=== PATIENT | female | born 1970 | race Caucasian/White ===

== ENCOUNTER 2020-09-02 07:49 | Outpatient (CLI) | payer BC, SELFPAY ==
--- NOTE | ~2020-09-02 | MM_ITS ---
EXAMINATION: MM screening chip BI w fátima HISTORY: Screening mammogram TECHNIQUE: Craniocaudal and mediolateral oblique 3-D tomosynthesis images were obtained and synthetic 2-D images were generated. CAD analysis was submitted and interpreted. COMPARISON: 06/13/2019, 02/28/2018, 11/17/2016 bilateral digital screening mammogram examinations BREAST PARENCHYMAL COMPOSITION: There are scattered areas of fibroglandular density. FINDINGS: There are bilateral mammographic asymmetries. Bilateral diagnostic mammography is recommend ed, with ultrasound if required. IMPRESSION: 1. Bilateral mammographic asymmetries 2. Bilateral diagnostic mammography is recommended, with ultrasound if required BI-RADS Category 0: Incomplete: Needs additional imaging evaluation. Reviewed, dictated and finalized at location A. 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
== END 2020-09-02 07:50 | disposition home or self-care (01) ==
LOC: ANHIMG 07:56
PROVIDERS: PCP Student in an Organized Health Care Education/Training Program; Visit Provider Student in an Organized Health Care Education/Training Program
DX: Z12.31 Encounter for screening mammogram for malignant neoplasm of breast (principal); R92.8 Other abnormal and inconclusive findings on diagnostic imaging of breast
CPT/HCPCS: 77063; 77067

== ENCOUNTER 2020-10-05 11:11 | Outpatient (CLI) | payer BC, SELFPAY ==
--- NOTE | ~2020-10-05 | MMUS_ITS ---
EXAMINATION: MM diagnostic mammo BI, US breast RT limited HISTORY: Bilateral breast asymmetries on screening mammogram TECHNIQUE: Additional 3-D tomosynthesis images of the breasts were performed and synthetic 2-D images were generated. CAD analysis was submitted and interpreted. High resolution limited right breast ult rasound was performed. COMPARISON: 09/02/2020, 06/13/2019, 02/28/2018 FINDINGS: MAMMOGRAPHIC FINDINGS: Left breast: No persistent asymmetry is identified with spot compression of the left breast. Right breast: There is a 5 mm obscured, oval, equal density mass in the middle third of the outer geremias ast at the 9:00 location 6 cm from the nipple. ULTRASOUND: There is a 4 mm oval, circumscribed, parallel, hypoechoic mass at the 8:00 location 2 cm from the nip ple. IMPRESSION: 1. Probably benign right breast mass. 2. Recommend 6 month follow-up right diagnostic mammogram and ultrasound. BI-RADS category 3, probably benign findings. 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 Probably benign right breast mass. 2. Recommend 6 month follow-up right diagnostic mammogram and ultrasound. BI-RADS category 3, probably benign findings.
== END 2020-10-05 11:12 | disposition home or self-care (01) ==
LOC: ANHIMG 11:12
PROVIDERS: PCP Student in an Organized Health Care Education/Training Program; Visit Provider Student in an Organized Health Care Education/Training Program
DX: R92.8 Other abnormal and inconclusive findings on diagnostic imaging of breast (principal)
CPT/HCPCS: 76642; 77066

== ENCOUNTER 2021-03-23 12:52 | Outpatient (CLI) | payer BC, SELFPAY ==
--- NOTE | ~2021-03-23 | MMUS_ITS ---
EXAMINATION: MM diagnostic chip RT w fátima, US breast RT limited HISTORY: Follow-up right breast mass TECHNIQUE: Additional 3-D tomosynthesis images of the right breast were performed and synthetic 2-D i mages were generated. CAD analysis was submitted and interpreted. High resolution Limited right breas t ultrasound was performed. COMPARISON: Comparison to multiple prior studies sequentially, with oldest reviewed study dated 10/26. BREAST PARENCHYMAL COMPOSITION: Breast composed of scattered areas of fibroglandular density. FINDINGS: MAMMOGRAPHIC FINDINGS: There is a small mass in the mid outer quadrant of the right breast, middle third. No suspicious calc ifications or architectural distortion. ULTRASOUND: Limited right breast ultrasound: At 8:00, 2 cm from the nipple, there is a 3 mm intramammary lymph no de corresponding to the mass identified on mammography. No suspicious sonographic masses to suggest m alignancy. IMPRESSION: 1. No evidence for malignancy in the right breast. 2. Routine yearly screening mammogram and regular clinical breast examination are recommended. BI-RADS Category 2: Benign finding(s). Reviewed, dictated and finalized at location A. IMPRESSION: 1. No evidence for malignancy in the right breast. 2. Routine yearly screening mammogram and regular clinical breast examination a re recommended. BI-RADS Category 2: Benign finding(s).
== END 2021-03-23 12:53 | disposition home or self-care (01) ==
LOC: ANHIMG 12:53
PROVIDERS: PCP Student in an Organized Health Care Education/Training Program; Visit Provider Student in an Organized Health Care Education/Training Program
DX: N63.13 Unspecified lump in the right breast, lower outer quadrant (principal)
CPT/HCPCS: 76642; 77061; 77065; G0279

== ENCOUNTER 2021-09-05 00:04 | Day surgery (SDC) | payer BC, SELFPAY ==
[2021-08-24 12:12] VITALS: BMI 44.5
[2021-09-05 06:15] VITALS: BP 132/68; PULSE 112; RESP 18; TEMP 35.9; O2SAT 98; BMI 44.6
[2021-09-05] MEDS: LACTATED RINGERS 1,000 ML 150 ML IV CONT (06:36)
--- NOTE | 2021-09-05 07:04 | WPDANESEPPF ---
Anes - Initial Pre Proc Eval Procedure: Operation Date: 09/05/21 07:30 Proposed Procedures p Screening Colonoscopy - Edgar Tapia MD Date/Time: 09/05/21 07:04 Surgeon: Edgar Tapia MD Pre Op Diagnosis: neoplasm screening Patient Data Age: 51 Gender: F Height: 1.6 m Weight: 114.2 kg Last Vital Signs Temp 35.9 C L 09/05/21 06:15 Pulse 112 H 09/05/21 06:15 Resp 18 09/05/21 06:15 BP 132/68 09/05/21 06:15 Pulse Ox 98 09/05/21 06:15 Allergies Allergy/AdvReac Type Severity Reaction Status Date / Time No Known Allergies Allergy Mild Verified 09/05/21 06:24 Home Medications Medication Instructions Recorded Confirmed Type atorvastatin 10 mg tablet 10 mg PO DAILY 03/02/20 09/05/21 History hydrochlorothiazide 25 mg tablet 25 mg PO DAILY 03/02/20 09/05/21 History lisinopril 40 mg tablet 40 mg PO DAILY 03/02/20 09/05/21 History norethindrone 1 mg-ethinyl 1 tablet PO DAILY #84 tablet 03/10/21 09/05/21 Rx estradiol 20 mcg (24)-iron 75 mg (4) tablet cholecalciferol (vitamin D3) 50 mcg PO DAILY 08/24/21 09/05/21 History [Vitamin D3] [id number] 1 cap PO DAILY 08/24/21 09/05/21 History [krill oil] Patient hx anesthesia problems: none Family hx anesthesia problems: none Results Review: All pre-operative results and documents have been reviewed as part of the pre-operative evaluation. [facility] Past Medical History Medical History (Updated 09/05/21 @ 07:04 by Maverick Ovalles MD) High cholesterol Hypertension Missed x1 Morbid obesity Vaginal delivery x1 Surgical History Surgical History History of dilation and curettage 1999 Family History Family History Mother Hypertension Asthma Patient's mother is in good health Sibling Hypertension Patient's sister is in good health Patient's brother is in good health Father Patient's father is Other Family history of attention deficit hyperactivity disorder (ADHD) Social History Social History Smoking status: Never smoker Second hand tobacco smoke exposure: No Alcohol intake: current Alcohol use details: 1-2X yearly Substance use: unknown Living arrangements: with family Spiritual care concerns: No Anes - Eval Final PreProcedure Day of Procedure 09/05/21 07:04 Patient weight: morbidly obese Heart: regular rate and rhythm Lungs: clear to auscultation Airway: Mallampati scale class II Neurological: alert and oriented Last oral intake: >/= 8 hours ASA classification: III Emergent: no Anesthetic plan: proceed Anesthesia type and monitoring: general GIVS and standard monitoring Results Review: All pre-operative results and documents have been reviewed as part of the pre-operative evaluation. Informed Consent: The patient's anesthetic plan and its attendant risks and benefits were discussed with the patient/family/POA. Questions were solicited and answers provided to the satisfaction of the patient/family/POA.
--- NOTE | 2021-09-05 07:15 | PM.HPGS ---
History of Present Illness History of Present Illness Consent: Risks, benefits, and alternatives have been discussed and questions answered. Patient agrees to proceed with procedure. Chief complaint: neoplasm screening Narrative: Kristin Downs is a 51 year old female here for first screening colonoscopy Review of Systems Constitutional: Constitutional: Denies headache(s) and Denies weakness Eyes: Eyes: Denies blurry vision ENT: Reports Normal hearing present, Denies headache(s) and Denies neck pain Cardiovascular: Cardiovascular: Denies chest pain and Denies dyspnea Respiratory: Respiratory: Denies dyspnea Gastrointestinal: Gastrointestinal: Reports no additional gastrointestinal complaints Genitourinary: Genitourinary: Denies dysuria Musculoskeletal: Musculoskeletal: Denies neck pain Integumentary/Breasts: Skin/Breast: Denies dry skin Neurologic: Reports Normal hearing present, Denies headache(s) and Denies weakness Psychiatric: Psychiatric: Denies anxiety Endocrine: Endocrine: Denies change in body appearance Hematologic/Lymphatic: Hematologic/Lymphatic: Denies easy bleeding Allergic/Immunologic: Allergic/Immunologic: Denies urticaria PMF Past Medical History Medical History (Updated 09/05/21 @ 07:16 by Edgar Tapia MD) Colon cancer screening High cholesterol Hypertension Missed x1 Morbid obesity Vaginal delivery x1 Surgical History Surgical History History of dilation and curettage 1999 Family History Family History Mother Hypertension Asthma Patient's mother is in good health Sibling Hypertension Patient's sister is in good health Patient's brother is in good health Father Patient's father is Other Family history of attention deficit hyperactivity disorder (ADHD) Social History Social History Smoking status: Never smoker Second hand tobacco smoke exposure: No Alcohol intake: current Alcohol use details: 1-2X yearly Substance use: unknown Living arrangements: with family Spiritual care concerns: No Meds Home Medications and Allergies Home Medications Medication Instructions Recorded Confirmed Type atorvastatin 10 mg tablet 10 mg PO DAILY 03/02/20 09/05/21 History hydrochlorothiazide 25 mg tablet 25 mg PO DAILY 03/02/20 09/05/21 History lisinopril 40 mg tablet 40 mg PO DAILY 03/02/20 09/05/21 History norethindrone 1 mg-ethinyl 1 tablet PO DAILY #84 tablet 03/10/21 09/05/21 Rx estradiol 20 mcg (24)-iron 75 mg (4) tablet cholecalciferol (vitamin D3) 50 mcg PO DAILY 08/24/21 09/05/21 History [Vitamin D3] [id number] 1 cap PO DAILY 08/24/21 09/05/21 History [krill oil] Allergies Allergy/AdvReac Type Severity Reaction Status Date / Time No Known Allergies Allergy Mild Verified 09/05/21 06:24 Vital Signs Vital Signs - 24 hr 09/05/21 06:15 Temperature 96.7 F L Pulse Rate 112 H Respiratory Rate 18 Blood Pressure 132/68 Pulse Oximetry 98 Exam Const: General: comfortable and no acute distress HENMT: General nose exam: Normal nares present Eyes: General: appearance normal, both eyes and all related structures Neck: Neck: no JVD Resp: Auscultation: clear to auscultation bilaterally Cardio: Rate: regular rate Rhythm: regular rhythm GI: Inspection: non-distended GI Palp: Yes Soft to palpation Skin: General skin exam: normal color Neuro: General: gait normal Speech: normal speech Extrem: General: normal to inspection Psych: Mental Status: mental status grossly normal Assessment and Plan Assessment and plan (1) Colon cancer screening: Code(s): Z12.11 - Encounter for screening for malignant neoplasm of colon Status: Acute Assessment and Plan: colon
[2021-09-05 07:46] VITALS: BP 108/68; PULSE 89; RESP 18; O2SAT 95
[2021-09-05 07:56] VITALS: BP 102/67; PULSE 76; RESP 15; O2SAT 98
[2021-09-05 08:06] VITALS: BP 116/69; PULSE 72; RESP 15; O2SAT 98
== END 2021-09-05 08:28 | disposition home or self-care (01) ==
PROVIDERS: PCP Family Medicine; Referring Provider Student in an Organized Health Care Education/Training Program; Visit Provider Internal Medicine Gastroenterology
PROC: 0DJD8ZZ Inspection of Lower Intestinal Tract, Via Natural or Artificial Opening Endoscopic (ICD-10-PCS; CPT 45378; principal; 2021-09-05 07:30)
DX: Z12.11 Encounter for screening for malignant neoplasm of colon (principal); D12.2 Benign neoplasm of ascending colon; K64.8 Other hemorrhoids; K63.5 Polyp of colon; E78.00 Pure hypercholesterolemia, unspecified; I10 Essential (primary) hypertension; E66.01 Morbid (severe) obesity due to excess calories; Z68.41 Body mass index [BMI] 40.0-44.9, adult
CPT/HCPCS: 45380; 45385; 88305; J2704; J7120

== ENCOUNTER 2021-12-15 10:26 | Outpatient (CLI) | payer BC, SELFPAY ==
--- NOTE | ~2021-12-15 | MM_ITS ---
EXAMINATION: MM screening chip BI w fátima HISTORY: Screening mammogram TECHNIQUE: Craniocaudal and mediolateral oblique 3-D tomosynthesis images were obtained and synthetic 2-D images were generated. CAD analysis was submitted and interpreted. COMPARISON: 03/23/2021 diagnostic right mammogram and limited right breast ultrasound examinations 10/05/2020 bilateral diagnostic mammogram and limited right breast ultrasound 09/02/2020 and 06/13/2019 bilateral screening mammogram examinations BREAST PARENCHYMAL COMPOSITION: There are scattered areas of fibroglandular density. FINDINGS: There is no evidence of suspicious mass, calcification, or architectural distortion to sugg est malignancy in either breast. There has been no suspicious interval change. IMPRESSION: 1. No mammographic evidence of malignancy. 2. Recommend routine screening mammography in one year. BI-RADS Category 1: Negative Reviewed, dictated and finalized at location A.
== END 2021-12-15 10:27 | disposition home or self-care (01) ==
PROVIDERS: Visit Provider Student in an Organized Health Care Education/Training Program
DX: Z12.31 Encounter for screening mammogram for malignant neoplasm of breast (principal)
CPT/HCPCS: 77063; 77067

== ENCOUNTER 2023-03-30 09:00 | Outpatient (CLI) | payer BC, SELFPAY ==
--- NOTE | ~2023-03-30 | MM_ITS ---
EXAMINATION: MM screening chip BI w fátima HISTORY: Screening TECHNIQUE: Craniocaudal and mediolateral oblique 3-D tomosynthesis images were obtained and synthetic 2-D images were generated. CAD analysis was submitted and interpreted. COMPARISON: Comparison to multiple prior studies sequentially, with oldest reviewed study dated 02/28. BREAST PARENCHYMAL COMPOSITION: There are scattered areas of fibroglandular density. FINDINGS: There is no evidence of suspicious mass, calcification, or architectural distortion to sugg est malignancy in either breast. There has been no suspicious interval change. IMPRESSION: 1. No mammographic evidence of malignancy. 2. Recommend routine screening mammography in one year. BI-RADS Category 1: Negative Reviewed, dictated and finalized at location A.
== END 2023-03-30 09:01 | disposition home or self-care (01) ==
LOC: ANHIMG 09:03
PROVIDERS: PCP Nurse Practitioner Family; Visit Provider Obstetrics & Gynecology
DX: Z12.31 Encounter for screening mammogram for malignant neoplasm of breast (principal)
CPT/HCPCS: 77063; 77067

== ENCOUNTER 2024-07-04 08:16 | Outpatient (CLI) | payer BC, SELFPAY ==
--- NOTE | ~2024-07-04 | MM_ITS ---
EXAMINATION: MM screening chip BI w fátima HISTORY: Screening mammogram TECHNIQUE: Craniocaudal and mediolateral oblique 3-D tomosynthesis images were obtained and synthetic 2-D images were generated. CAD analysis was submitted and interpreted. COMPARISON: 03/30/2023, 12/15/2021, 03/23/2020 BREAST PARENCHYMAL COMPOSITION:Not Dense. The breasts are almost entirely fatty FINDINGS: No suspicious mass, calcification, or architectural distortion are identified in either geremias ast to suggest malignancy. There has been no suspicious interval change. IMPRESSION: No mammographic evidence of malignancy. Recommend routine screening mammography in one year. BI-RADS Category 1: Negative Reviewed, dictated and finalized at location . 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
== END 2024-07-04 08:17 | disposition home or self-care (01) ==
LOC: ANHIMG 08:19
PROVIDERS: PCP Nurse Practitioner Family; Visit Provider Nurse Practitioner Family
DX: Z12.31 Encounter for screening mammogram for malignant neoplasm of breast (principal)
CPT/HCPCS: 77063; 77067

== ENCOUNTER 2024-12-29 00:55 | Day surgery (SDC) | payer BC, SELFPAY ==
[2024-12-18 09:06] VITALS: BMI 38.1
--- OUTSIDE RECORDS SUMMARY | 2024-12-29 00:58 | XMS_ITS | Referral Summary ---
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 Name Role Phone Stanley Courtney MD Unavailable [phone] Monse Marie NP Primary Care Provider [phone] Encounters Date Type Department Care Team Description 12/12/2024 Results Follow-Up [facility] Medical [facility] Primary Care at [address] [address] Monse Marie NP Comprehensive metabolic panel, Lipid panel, Hemoglobin A1c, Albumin Creatinine Ratio, Urine 11/20/2024 10:30 AM CDT Office Visit [facility] Primary Care at [address] [address] Monse Marie NP BMI 38.0-38.9,adult (Primary Dx); Essential hypertension; Mixed hyperlipidemia; Folic acid deficiency; Anemia, unspecified type; Type 2 diabetes mellitus with hyperlipidemia (HCC); B12 deficiency; Severe obesity (HCC) from Last 3 Months Allergies No known active allergies Medications multivitamin capsule Take 1 capsule by mouth daily Active cholecalciferol (VITAMIN D-3) 25 mcg (1,000 unit) tablet Take 1 tablet (1,000 Units total) by mouth daily Active Vitamin C 500 mg tablet,chewable 2 Active OneTouch Verio test strips strip Once a day 5 Active atorvastatin (LIPITOR) 10 mg tabletIndications: Mixed hyperlipidemia,Typ e 2 diabetes mellitus with hyperlipidemia (HCC) Take 1 tablet (10 mg total) by mouth daily 90 tablet 3 5 Active carvediloL (COREG) 6.25 mg tabletIndications: Essential hypertension Take 1 tablet (6.25 mg total) by mouth 2 (two) times a day with meals 180 tablet 3 5 Active lisinopriL (PRINIVIL,ZESTRIL) 40 mg tabletIndications: Essential hypertension Take 1 tablet (40 mg total) by mouth daily 90 tablet 3 5 Active metFORMIN (GLUCOPHAGE) 500 mg tabletIndications: Type 2 diabetes mellitus with hyperlipidemia (HCC) Take 1 tablet (500 mg total) by mouth 2 (two) times a day with meals 180 tablet 3 5 Active Mounjaro 7.5 mg/0.5 mL pen injector injectionIndicatio ns:Type 2 diabetes mellitus with hyperlipidemia (HCC) Inject 0.5 mL (7.5 mg total) under the skin once a week 6 mL 3 5 Active amLODIPine (NORVASC) 5 mg tablet Take 1 tablet (5 mg total) by mouth daily 90 tablet 3 5 12/13/19 26 Active hydroCHLOROthiazid e (HYDRODIURIL) 25 mg tabletIndications: Essential hypertension Take 1 tablet (25 mg total) by mouth daily 90 tablet 3 5 12/13/19 25 Discontin ued(Alter campbell therapy) Active Problems Problem Noted Date Diagnosed Date Type 2 diabetes mellitus with hyperlipidemia 05/2025 Assessment & Plan (11/20/2024 11:10 AM CDT): Orders: Hemoglobin A1c; Future Albumin Creatinine Ratio, Urine; Future atorvastatin (LIPITOR) 10 mg tablet; Take 1 tablet (10 mg total) by mouth daily metFORMIN (GLUCOPHAGE) 500 mg tablet; Take 1 tablet (500 mg total) by mouth 2 (two) times a day with meals Mounjaro 7.5 mg/0.5 mL pen injector injection; Inject 0.5 mL (7.5 mg total) under the skin once a week H/O total knee replacement, bilateral 11/20/2024 Severe obesity 11/20/2024 Assessment & Plan (11/20/2024 11:10 AM CDT): History of colonic polyps 11/20/2024 Overview (11/20/2024): Colonoscopies every three years [address] Abreu Essential hypertension 04/16/2023 Assessment & Plan (11/20/2024 11:10 AM CDT): Orders: Comprehensive metabolic panel; Future carvediloL (COREG) 6.25 mg tablet; Take 1 tablet (6.25 mg total) by mouth 2 (two) times a day with meals hydroCHLOROthiazide (HYDRODIURIL) 25 mg tablet; Take 1 tablet (25 mg total) by mouth daily lisinopriL (PRINIVIL,ZESTRIL) 40 mg tablet; Take 1 tablet (40 mg total) by mouth daily Hyperlipidemia 04/16/2023 Assessment & Plan (11/20/2024 11:10 AM CDT): Orders: Lipid panel; Future atorvastatin (LIPITOR) 10 mg tablet; Take 1 tablet (10 mg total) by mouth daily Folic acid deficiency 04/16/2023 Assessment & Plan (11/20/2024 11:10 AM CDT): Anemia 04/16/2023 Assessment & Plan (11/20/2024 11:10 AM CDT): Orders: CBC with auto differential; Future Folate; Future Vitamin B12; Future Iron profile w/ IBC; Future Bilateral primary osteoarthritis of knee 021 Resolved Problems Problem Noted Date Diagnosed Date Resolved Date Cobalamin deficiency 04/16/2023 025 Primary osteoarthritis of left knee 05/17/2022 11/20/2024 Overview (05/17/2022): Added automatically from request for surgery [id number] Primary osteoarthritis of right knee 01/12/2022 11/20/2024 Overview (01/12/2022): Added automatically from request for surgery [id number] Primary osteoarthritis of both knees 09/26/2019 11/20/2024 Immunizations Immunization Administration Dates Next Due Influenza, Quadrivalent, Spl it, Preservative Free, Intramuscular 05/17/2022 Social History Tobacco Use Types Packs/Day Years Used Date Smoking Tobacco: Never Passive Smoke Exposure: Never Smokeless Tobacco: Never Tobacco Cessation:Counseling Given: Not Answered Alcohol Use Standard Drinks/Week Comments Never 0 (1 standard drink = 0.6 oz pur e alcohol) AUDIT-C Answer Date Recorded Q1: How often do you have a drink containing alcohol? Never 11/20/2024 Q2: How many drinks containi ng alcohol do you have on a typical day when you are drinking? Patient does not drink Q3: How often do you have si x or more drinks on one occasion? Never 11/20/2024 PHQ-2 Answer Date Recorded PHQ-2 Total Score (If total score is 3 or more points, staff should administer the PHQ-9) 0 11/20/2024 Comments No Sex and Gender Information Value Date Recorded Sex Assigned at Not on file Legal Sex Female 1:36 AM [employer] Gender Identity Not on file Sexual Orientation Not on file Last Filed Vital Signs Vital Sign Reading Time Taken Comments Blood Pressure 110/80 11/20/2024 10:27 AM CDT Pulse 91 11/20/2024 10:27 AM CDT Temperature 36.8 C (98.3 F) 11/20/2024 10:27 AM CDT Respiratory Rate 16 11/20/2024 10:27 AM CDT Oxygen Saturation 99% 11/20/2024 10:27 AM CDT Inhaled Oxygen Concentration - - Weight 98.4 kg (217 lb) 11/20/2024 10:27 AM CDT Height 160 cm (5' 3 ) 11/20/2024 10:27 AM CDT Body Mass Index 38.44 11/20/2024 10:27 AM CDT Plan of Treatment Not on file Medical Devices Implanted Type Area Bi Manager Device Identifier Shelf Expiration Date Model / Serial / Lot [employer] Cement Bone Simplex Gentamicin High Viscosity 40 6195-1-001 - [id number] Implanted:Qty: 1 on 02/10/2022 by Stanley Courtney MD at [facility] Right: Knee [employer] 07/12/2023 6195-1-001 / / [id number] [employer] Cement Bone Simplex Gentamicin High Viscosity 40 6195-1-001 - [id number] Implanted:Qty: 1 on 02/10/2022 by Stanley Courtney MD at [facility] Right: Knee [employer] 07/12/2023 6195-1-001 / / [id number] [employer] Attune S+ Cement Fix Bearing Knee 4 Baseplate Tibial [id number] - [id number] Implanted:Qty: 1 on 02/10/2022 by Stanley Courtney MD at [facility] Right: Knee [employer] 12/11/2031 [id number] / / [id number] [employer] Attune Cemented Posterior Stabilize Knee Right 5 Narrow Component [id number] - [id number] Implanted:Qty: 1 on 02/10/2022 by Stanley Courtney MD at [facility] Right: Knee [employer] 11/11/2031 [id number] / / [id number] [employer] Attune 10mm Posterior Stabilize Fix Bearing Knee 4 Insert Tibial [id number] - [id number] Implanted:Qty: 1 on 02/10/2022 by Stanley Courtney MD at [facility] Right: Knee [employer] 08/12/2023 [id number] / / [id number] [employer] Cement Bone Simplex Gentamicin High Viscosity [facility] 6195-1-001 - [id number] Implanted:Qty: 2 on 06/02/2022 by Stanley Courtney MD at [facility] Left: Knee [employer] 11/11/2023 6195-1-001 / / [id number] [employer] Attune Cemented Posterior Stabilize Knee Left 5 Narrow Component [id number] - [id number] Implanted:Qty: 1 on 06/02/2022 by Stanley Courtney MD at [facility] Left: Knee [employer] [id number] 03/12/2029 [id number] / / [id number] [employer] Attune 10mm Posterior Stabilize Fix Bearing Knee 5 Insert Tibial [id number] - [id number] Implanted:Qty: 1 on 06/02/2022 by Stanley Courtney MD at [facility] Left: Knee [employer] 12/10/2026 [id number] / / [id number] [employer] Attune S+ Cement Fix Bearing Knee 4 Baseplate Tibial [id number] - [id number] Implanted:Qty: 1 on 06/02/2022 by Stanley Courtney MD at [facility] [employer] [id number] 04/12/2032 [id number] / / [id number] Procedures Procedure Name Priority Date/Time Associated Diagnosis Comments ALBUMIN CREATININE RATIO, URINE Routine 12/09/2024 7:17 AM CDT Type 2 diabetes mellitus with hyperlipidemia (HCC) HEMOGLOBIN A1C Routine 12/09/2024 7:17 AM CDT Type 2 diabetes mellitus with hyperlipidemia (HCC) LIPID PANEL Routine 12/09/2024 7:17 AM CDT Mixed hyperlipidemia COMPREHENSIVE METABOLIC PANEL Routine 12/09/2024 7:17 AM CDT Essential hypertension from Last 3 Months Results * Albumin Creatinine Ratio, Urine (12/09/2024 7:17 AM CDT) Creatinine, ur 242 20 - 275 mg/dL [facility] Microalbumin, ur 2.1 See Note: mg/dL [facility] Comment: Reference Range: Reference Range Not established Microalbumin/creat ratio 9 <30 mg/g creat [facility] Comment: The ADA defines abnormalities in albumin excretion as follows: Albuminuria Category Result (mg/g creatinine) Normal to Mildly increased <30 Moderately increased 30-299 Severely increased > OR = 300 The ADA recommends that at least two of three specimens collected within a 3-6 month period be abnormal before considering a patient to be within a diagnostic category. Urine 12/09/2024 7:17 AM CDT 12/09/2024 7:17 AM CDT Narrative [facility] - 12/10/2024 3:59 AM CDT FASTING:YES FASTING: YES Monse Therien ESTIMATOR LUMBER LAB URINE ORDERABLES Final Re sult Performing Organization Address City/[facility]/ZIP Co de Phone Number [facility] [address] [address] * Hemoglobin A1c (12/09/2024 7:17 AM CDT) Pathologist [facility] Hgb A1C 5.6 <5.7 % of total Hgb [facility] Comment: For the purpose of screening for the presence of diabetes: <5.7% Consistent with the absence of diabetes 5.7-6.4% Consistent with increased risk for diabetes (prediabetes) > or =6.5% Consistent with diabetes This assay result is consistent with a decreased risk of diabetes. Currently, no consensus exists regarding use of hemoglobin A1c for diagnosis of diabetes in children. According to [place] Diabetes Association (ADA) guidelines, hemoglobin A1c <7.0% represents optimal control in non- diabetic patients. Different metrics may apply to specific patient populations. Standards of Medical Care in Diabetes(ADA). Blood 12/09/2024 7:17 AM CDT 12/09/2024 7:17 AM CDT Narrative [facility] - 12/10/2024 3:59 AM CDT FASTING:YES FASTING: YES Monse Marie NP LAB BLOOD ORDERABLES Final Re sult Performing Organization Address [facility]/ZIP Co de Phone Number [facility] [address] [place] [address] * (ABNORMAL) Lipid panel (12/09/2024 7:17 AM CDT) Pathologist [facility] Cholesterol 138 <200 mg/dL [facility] HDL 54 > OR = 50 mg/dL [facility] Triglycerides 156(H) <150 mg/dL [facility] LDL 61 mg/dL (calc) [facility] Comment: Reference range: <100 Desirable range <100 mg/dL for primary prevention; <70 mg/dL for patients with CHD or diabetic patients with > or = 2 CHD risk factors. LDL-C is now calculated using the Carlito calculation, which is a validated novel method providing better accuracy than the Friedewald equation in the estimation of LDL-C. Pop SS et al. MAHENDRA. 2013;310(19): 5777-7757 (http://education.MotherKnows.Pwinty/faq/NFD889) Chol/HDL ratio 2.6 <5.0 (calc) [facility] Non-HDL, (LDL+VLDL) 84 <130 mg/dL (calc) [facility] Comment: For patients with diabetes plus 1 major ASCVD risk factor, treating to a non-HDL-C goal of <100 mg/dL (LDL-C of <70 mg/dL) is considered a therapeutic option. Blood 12/09/2024 7:17 AM CDT 12/09/2024 7:17 AM CDT Narrative [facility] - 12/10/2024 3:59 AM CDT FASTING:YES FASTING: YES Monse Marie ESTIMATOR LUMBER LAB BLOOD ORDERABLES Final Re sult [facility] [address] [place] [address] * (ABNORMAL) Comprehensive metabolic panel (12/09/2024 7:17 AM CDT) Pathologist [facility] Glucose 98 65 - 99 mg/dL [facility] Comment: Fasting reference interval BUN 48(H) 7 - 25 mg/dL [facility] Creatinine 2.12(H) 0.50 - 1.03 mg/dL [facility] eGFR 27(L) > OR = 60 mL/min/1.7 3m2 [facility] BUN/creat ratio 23(H) 6 - 22 (calc) [facility] Sodium 140 135 - 146 mmol/L [facility] Potassium, pl 4.2 3.5 - 5.3 mmol/L [facility] Chloride 105 98 - 110 mmol/L [facility] CO2 25 20 - 32 mmol/L [facility] Calcium 9.4 8.6 - 10.4 mg/dL [facility] Protein, sr 6.7 6.1 - 8.1 g/dL [facility] Albumin 4.3 3.6 - 5.1 g/dL [facility] GLOBULIN 2.4 1.9 - 3.7 g/dL (calc) [facility] Alb/glob ratio 1.8 1.0 - 2.5 (calc) [facility] Bilirubin, total 0.4 0.2 - 1.2 mg/dL [facility] Alk phos 55 37 - 153 U/L [facility] AST 18 10 - 35 U/L [facility] ALT (SGPT) 23 6 - 29 U/L [facility] Blood 12/09/2024 7:17 AM CDT 12/09/2024 7:17 AM CDT Narrative [facility] - 12/10/2024 3:59 AM CDT FASTING:YES FASTING: YES us Monse Marie NP LAB BLOOD ORDERABLES Final Re sult [facility] [address] [place] [address] from Last 3 Months Insurance [address] [place] [address] FORMERLY [facility] [place] [address] Advance Directives For more information, please contact: [phone] * Full Code (Latest Code Status on File) Date Activated Date Inactivated Comments 06/02/2022 11:17 AM 06/02/2022 7:04 PM * Full Code Date Activated Date Inactivated Comments 02/10/2022 11:03 AM 02/10/2022 6:38 PM Care Teams Bicycle Mechanic Relationship Specialty Start Date End Date Monse Marie NP [address] [facility] [address] [place] [address] PCP - General Internal Medicine 11/20/24 Stanley Courtney MD Surgeon Orthopedic Surgery 02/10/22
--- OUTSIDE RECORDS SUMMARY | 2024-12-29 00:58 | XMS_ITS | Data Portability ---
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 Lab HbA1c (hemoglobi n A1c), blood 2024 025 [email or web address], [address], [place], [address], 5 23:40:51 HbA1c (hemoglobi n A1c), blood 2023 024 [email or web address] Dwayne [facility], [address], [place], [address], 4 09:06:39 hepatitis C virus Ab, serum 2023 024 [facility], [address], [place], [address], 4 09:06:39 HbA1c (hemoglobi n A1c), blood 2023 024 [email or web address] [facility], [address], [place], [address], 4 11:25:28 CMP, serum or plasma 2023 024 [email or web address] [id number] [facility], [address], [place], [address], 4 11:25:28 TSH, serum or plasma 2023 024 [email or web address] [address] [facility], [address], [place], [address], 4 11:25:28 T4, free, serum 2023 024 [place] [address] [facility], [address], [place], [address], 4 11:25:28 vitamin B12 + folate, serum or blood 2023 024 [place] [address] [facility], [address], [place], [address], 4 11:25:27 iron + TIBC + ferritin, serum 2023 024 [place] [address] [facility], [address], [place], [address], 4 11:25:28 CBC w/ auto diff 2023 024 [place] [address] [facility], [address], [place], [address], 4 11:25:27 lipid panel, serum 2023 024 [email or web address] [facility], [address], [place], [address], 4 11:25:28 HbA1c (hemoglobi n A1c), blood 2022 023 [email or web address], [address], [place], [address], 4 08:33:40 iron + TIBC + ferritin, serum 2022 023 [email or web address] [facility], [address], [place], [address], 4 08:33:40 CBC w/ auto diff 2022 023 [email or web address], [address], [place], [address], 4 08:33:39 lipid panel, serum 2022 023 [email or web address], [address], [place], [address], 4 08:33:39 CMP, serum or plasma 2022 023 [email or web address], [address], [place], [address], 4 08:33:39 TSH, serum or plasma 2022 023 [email or web address], [address], [place], [address], 4 08:33:39 vitamin B12 + folate, serum or blood 2022 023 [email or web address], [address], [place], [address], 4 08:33:[address] referral - Persistent tachycardi a, started on Coreg 6.25mg 2023 024 [email or web address] [facility], [address] [facility] [address], [place], [address], 5 11:26:17 Procedures None recorded. Surgeries None recorded. Imaging None recorded. Medication Orders OneTouch Verio test strips 2024 025 [facility] [place] [facility] [address], [place], [address], 5 10:34:15 carvedilol 6.25 mg tablet 2023 024 [facility] [place] [facility] [address], [place], [address], 4 11:51:27 Mounjaro 2.5 mg/0.5 mL subcutaneo us pen injector [email or web address] [place] [address] Pharm[address] [facility], [place], [address], 4 10:49:32 hydrochlor othiazide 25 mg tablet 2023 024 [facility] [place] [facility] [address], [address], [place], [address], 4 08:42:13 lisinopril 40 mg tablet 2023 024 [facility] [place] [facility] [address], [address], [place], [address], 4 08:42:14 atorvastat in 10 mg tablet 2023 024 [facility] [place] [facility] [address], [place], [address], 4 08:42:14 atorvastat in 10 mg tablet 2022 023 [facility] [place] [facility] [address], [place], [address], 3 10:28:03 hydrochlor othiazide 25 mg tablet 2022 023 [facility] [place] [facility] [address] [place], [address], 3 10:28:02 lisinopril 40 mg tablet 2022 023 [facility] [place] [facility] [address] [place], [address], 3 10:28:04 Patient TargetsNo targets recorded. Patient Instructions Encounter Date Encounter Id Patient Instructions Last Modified By Organization Details Last Modified Time 12/12/2023 [id number] Follow up in 1 year and as needed Obtain labs Prescriptions sent to pharmacy Not available 12/12/2023 08:42:00 04/16/2024 [id number] diabetic eye exam* Not available 10/13/2024 08:32:45 diabetic foot exam* dayne Not available 07/22/2024 07:55:49 Follow up in 4 months Prescription sent to pharmacy Obtain labs Tests: Referral: [facility]-diabetic eye exam Podiatry-[facility]-diabetic foot exam Cardiology-[facility] cardiology Recommend: Pneumococcal vaccine Tetanus vaccine Shingles vaccine Not available 04/16/2024 11:51:00 08/20/2024 [id number] Follow up in December-appointment already made. Prescriptions sent to pharmacy Obtain labs Recommend: Pneumococcal vaccine Tetanus vaccine Shingles vaccine Not available 08/20/2024 10:34:29 Reason for Referral Clinical Support Associate Referral for Ta chycardia Persistent tachycardia, started on Coreg 6.25mg Referring Physician: Aubrie Torre, Internal Medicine, Encounter Date: 04/16/2024 Results Created Date Observation Date Name Description Value Unit Range Abnormal Flag Note LastModifiedBy Organization Detail LastModifiedTime 09/23/1909/23/2024 HEMOG LOBIN A1C hemoglobin A1C 5.9 %_of_ total _HGB <5.7 high For someo ne witho ut known diabe lizbet, a hemog lobin A1c value betwe en 5.7% and 6.4% is consi stent with predi abete s and shoul d be confi rmed with a follo w-up test. For someo ne with known diabe lizbet, a value <7% indic ates that their diabe lizbet is well contr olled . A1c targe ts shoul d be indiv idual ized based on durat ion of diabe lizbet, age, comor bid condi tions , and other consi derat ions. This assay resul t is consi stent with an incre ased risk of diabe lizbet. Curre ntly, no conse nsus exist s regar ding use of hemog lobin A1c for diagn osis of diabe lizbet for child sallie. Not Available [facility] [address], [place], [address], 09/23/2024 23:40:51 03/30/20 23 03/30/2023 MAMMO , scree anne, digit al, bilat eral No observ ation record ed. [email or web address] [id number] [facility] [address], [place], [address], 04/03/2023 14:14:47 Result Notes None recorded. Problems Name Problem SNOMED Code Status Onset Date Resolution Date Notes Provider Name and Address Organization Details Recorded Time Hyperlip idemia 26492854 Active 2022 Aubrie Torre APRN [address], [facility] [address], [place], [address], [facility] 4 12:50:21 [facility] vera 70508693 Active 2022 Aubrie Torre APRN [address], [address], [place], [address], [facility] 4 12:50:18 Prediabe lizbet 264767775 Completed 202212/13/2023 Removal Reason: She has now moved to full diabetes mellitus type II Aubrie Torre APRN [address], [address], [place], [address], [facility] 4 12:50:02 Osteoart hritis of knee 442740663 Active 2022 Aubrie Torre APRN [address], [address], [place], [address], [facility] 4 12:50:26 Anemia 467591021 Active 2022 Aubrie Torre APRN [address], [address], [place], [address], [facility] 4 12:50:11 Cobalami n deficien cy 394156302 Active 2022 Aubrie Torre APRN [address], [address], [place], [address], [facility] 4 12:50:13 Folic acid deficien cy 924854594 Active 2022 Aubrie Torre APRN [address], [address], [place], [address], [facility] 4 12:50:15 Diabetes mellitus 05298607 Active 2023 Aubrie Torre APRN [address], [address], [place], [address], [facility] 4 12:49:30 Type 2 diabetes mellitus without complica tion 616566726 Active 2023 Aubrie Torre APRN [address], [address], [place], [address], [facility] 5 14:50:39 Tachycar apple 1921433 Active 2023 Aubrie Torre APRN [address], [address], [place], [address], [facility] 4 11:40:40 Problem Notes None recorded. Procedures Surgical History Date Name Laterality Status Provider Name and Address Organization Details Recorded Time 06/02/20 Knee Replacement completed Not Available [facility] 10/12/2022 00:56:45 02/11/20 Knee Replacement completed Not Available [facility] 10/12/2022 00:56:45 Imaging Results Imaging Date Name Status LastModified by Organiz ation Details LastModified Time 03/30/2023 MAMMO, screening, digital, bilateral completed [email or web address] [place] [address] [address], [place], [address], 04/03/2023 14:14:47 Procedure Notes None recorded. Medical Equipment None Reported. Allergies No known drug allergies Medications Name Sig Start Date Stop Date Status Note LastModified by Organization Details LastModified Time amoxicillin 500 mg capsule 05/17 completed Not Available Not Available Not Available metformin 500 mg tablet Take 1 tablet by mouth twice daily 2024 active Not Available Not Available Not Avai lable carvedilol 6.25 mg tablet TAKE 1 TABLET BY MOUTH TWICE DAILY DIRECTED FOR TACHYCARD IA active Not Available Not Available No t Available atorvastati n 10 mg tablet Take 1 tablet by mouth once daily active Not Available Not Available No t Available ondansetron HCl 8 mg tablet 09/20 completed Not Available Not Available Not Available Vitamin C 500 mg chewable tablet 09/20 completed Not Available Not Available Not Available triamcinolo ne acetonide 0.1 % topical cream APPLY TO THE AFFECTED AREA(S) TWICE DAILY FOR TWO WEEKS active Not Available Not Available No t Available oxycodone-a cetaminophe n 5 mg-325 mg tablet 09/20 completed Not Available Not Available Not Available aspirin 325 mg tablet,gonzalez yed release 09/20 completed Not Available Not Available Not Available cyanocobala min (vit B-12) 1,000 mcg/mL injection solution Inject 1 mL every month by subcutane ous route. 09/20 completed Not Available Not Available Not Available hydrochloro thiazide 25 mg tablet TAKE 1 TABLET BY MOUTH ONCE DAILY 2024 active Not Available Not Available Not Avai lable lisinopril 40 mg tablet TAKE 1 TABLET BY MOUTH ONCE DAILY 2024 active Not Available Not Available Not Avai lable ondansetron 4 mg disintegrat ing tablet 05/17 completed Not Available Not Available Not Available nitrofurant oin monohydrate /macrocryst als 100 mg capsule Take 1 capsule every 12 hours by oral route for 3 days. 05/17 completed Not Available Not Available Not Available multivitami n 1 tablet daily active Not Available Not Available No t Available FeroSul 325 mg (65 mg iron) tablet 09/20 completed Not Available Not Available Not Available Vitamin D3 50 mcg (2,000 unit) capsule Take 1 capsule every day by oral route. active Not Available Not Available No t Available OneTouch Verio test strips Take 1 strip twice a day by miscell. route as directed, for diabetes. active Not Available Not Available No t Available Stimulant Laxative Plus 8.6 mg-50 mg tablet 09/20 completed Not Available Not Available Not Available OneTouch Verio Flex Meter active Not Available Not Available Not Available Gwen 24 Fe 1 mg-20 mcg (24)/75 mg (4) tablet 12/11 completed Not Available Not Available Not Available OneTouch Delica Plus Lancet 33 gauge active Not Available Not Available Not Available Mounjaro 7.5 mg/0.5 mL subcutaneou s pen injector Inject 0.5 mL every week by subcutane ous route as directed, for diabetes. active Not Available Not Available No t Available Mounjaro 5 mg/0.5 mL subcutaneou s pen injector Inject 0.5 mL every week by subcutane ous route as directed, for Diabetes. 08/20 completed Not Available Not Available Not Available Mounjaro 2.5 mg/0.5 mL subcutaneou s pen injector INJECT 2.5MG SUBCUTANE OUSLY ONCE WEEKLY 05/10 completed Not Available Not Available Not Available Vitals Date Recorded Body mass index (BMI) Body height Oxygen saturation Oxygen saturation in Arterial blood by Pulse oximetry Heart rate Body temperature Body weight Systolic blood pressure Diastolic blood pressure Provider Name and Address Organization Details Last Updated DateTime 3 43.6 kg/m2 160.02 cm 98 % 98 % 104 /min 97.7 [degF] 278536. 72 g 134 mm[Hg] 72 mm[Hg] Not Available [facility] 3 00:56:48 Date Recorded Body height Body mass index (BMI) Body weight Body temperature Heart rate Oxygen saturation Oxygen saturation in Arterial blood by Pulse oximetry Systolic blood pressure Diastolic blood pressure Provider Name and Address Organization Details Last Updated DateTime 3 160.02 cm 45.7 kg/m2 934860. 83 g 97.6 [degF] 102 /min 97 % 97 % 132 mm[Hg] 74 mm[Hg] Shilpa Sagastume MA [place] [facility] 3 10:12:50 Date Recorded Body height Body mass index (BMI) Body weight Body temperature Heart rate Oxygen saturation Oxygen saturation in Arterial blood by Pulse oximetry Systolic blood pressure Diastolic blood pressure Provider Name and Address Organization Details Last Updated DateTime 4 160.02 cm 46.9 kg/m2 591928. 98 g 97 [degF] 99 /min 97 % 97 % 130 mm[Hg] 62 mm[Hg] Arianne Almanza MA [place] [facility] 4 08:27:05 Date Recorded Body height Body mass index (BMI) Body weight Body temperature Heart rate Oxygen saturation Oxygen saturation in Arterial blood by Pulse oximetry Systolic blood pressure Diastolic blood pressure Provider Name and Address Organization Details Last Updated DateTime 4 160.02 cm 45.9 kg/m2 732005. 42 g 95.6 [degF] 110 /min 98 % 98 % 128 mm[Hg] 68 mm[Hg] Arianne Almanza MA [place] [facility] 4 11:34:00 Date Recorded Body height Body mass index (BMI) Body weight Body temperature Heart rate Oxygen saturation Oxygen saturation in Arterial blood by Pulse oximetry Systolic blood pressure Diastolic blood pressure Provider Name and Address Organization Details Last Updated DateTime 5 160.02 cm 42.5 kg/m2 674744. 17 g 95.2 [degF] 92 /min 98 % 98 % 142 mm[Hg] 88 mm[Hg] Tracey Darden RN [place] [facility] [facility] 5 10:16:43 Social History Question Answer Notes LastModified by Organizat ion Details LastModified Time Tobacco Smoking Status Never Smoker Not Available [facility] 10/12/2022 00:56:28 What Is Your Level Of Caffeine Consumption? Occasional [id number] Information not available 10/12/2022 In The 14 Days Before Symptom Onset, Have You Had Close Contact With A Laboratory-confir med COVID-19 While That Case Was Ill? No [id number] Information not available 10/12/2022 In The 14 Days Before Symptom Onset, Have You Had Close Contact With A Person Who Is Under Investigation For COVID-19 While That Person Was Ill? No MIGRATION.37255 28520 Information not available 10/12/2022 What Type Of Diet Are You Following? REGULAR MIGRATION.73637 17560 Information not available 10/12/2022 What Is The Highest Grade Or Level Of School You Have Completed Or The Highest Degree You Have Received? [id number] MIGRATION.90421 83309 Information not available 10/12/2022 Have There Been Any Changes To Your Family Or Social Situation? No MIGRATION.78156 19436 Information not available 10/12/2022 What Is The Fluoride Status Of Your Home? Unknown MIGRATION.44271 46417 Information not available 10/12/2022 Do You Use Insect Repellent Routinely? No MIGRATION.96988 16074 Information not available 10/12/2022 Where Do You Live? [place]House MIGRATION.83078 62639 Information not available 10/12/2022 What Was The Date Of Your Most Recent Tobacco Screening? 04/16/2024 Information not available 04/16/2024 How Many Children Do You Have? 0 Information not available 12/12/2023 Do You Have Any Pets? Yes MIGRATION.52448 20153 Information not available 10/12/2022 What Is Your Relationship Status? MIGRATION.38552 14508 Information not available 10/12/2022 Do You Use Your Seat Belt Or Car Seat Routinely? Yes MIGRATION.89037 66019 Information not available 10/12/2022 Do You Have Smoke And Carbon Monoxide Detectors In Your Home? Yes MIGRATION.57398 42414 Information not available 10/12/2022 Are You Passively Exposed To Smoke? No MIGRATION.23553 23321 Information not available 10/12/2022 Are There Any Smokers In Your House? No MIGRATION.54013 46128 Information not available 10/12/2022 Do You Use Sunscreen Routinely? Yes MIGRATION.34168 41116 Information not available 10/12/2022 Have You Recently Traveled Abroad? No MIGRATION.92133 84553 Information not available 10/12/2022 Do You Have Any Dietary Restrictions? No MIGRATION.00025 00807 Information not available 10/12/2022 Sex: Unknown Functional Status Question Answer Note LastModified by Organizat ion Details LastModified Time Do you use any illicit or recreational drugs? No MIGRATION.[id number] 026 Information not available 10/12/2022 Do you or have you ever used any other forms of tobacco or nicotine? No MIGRATION.4489877 026 Information not available 10/12/2022 What is your level of alcohol consumption? 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 Occasional MIGRATION.[id number] 026 Information not available 10/12/2022 Mental Status Question Answer Note LastModified by Organizat ion Details LastModified Time Do you feel stressed (tense, restless, nervous, or anxious, or unable to sleep at night)? [id number] [id number] 6 Information not available 10/12/2022 Family History Relationship Description Onset Age of this Age Resolved Age Notes LastModified by Organization Details LastModified Time Father No current problems or disability [id number] Not available 10/12/2022 00:56:46 Mother No current problems or disability MIGRATION.[id number] Not available 10/12/2022 00:56:46 Medical History Condition Response HYPERTENSION Y Gynecological History Statement/Question Response How many live births 0 Abnormal Pap N Date of Last Mammogram Date of Last Colonoscopy Most Recent Bone Density Date of LMP Date of Last Pap Current Control Method None Age at Menarche 11 Obstetrics History GPAL:G 2 P 1 0 1 1 Type Value Multiple Births 0 Full Term 1 Induced 0 Spontaneous 1 Premature 0 Living 1 Ectopics 0 Total 2 Immunizations Vaccine Type Date Status Note Provider Charlie e and Address Organization Details Recorded Time COVID-19, mRNA, LNP-S, PF, 30 mcg/0.3 mL dose 08/02/2021 completed Aubrie Torre APRN [address], [address], [place], [address], [facility] 12/06/2023 08:59:17 COVID-19, mRNA, LNP-S, PF, 30 mcg/0.3 mL dose 11/21/2020 completed Aubrie Torre APRN [address], [address], [place], [address], [facility] [employer] [facility] 12/06/2023 08:59:17 COVID-19, mRNA, LNP-S, PF, 30 mcg/0.3 mL dose 10/29/2020 completed Aubrie Torre APRN [address] [facility], [address], [place], [address], [facility] [employer] [facility] 12/06/2023 08:59:17 Influenza, split virus, quadrivalent, PF 05/17/2022 completed Not Available [facility] 00:58:01 Past Encounters Encounter ID Performer Location Encounter Start Date Encounter Closed Date Diagnosis/Indication Diagnosis SNOMED-CT Code Diagnosis ICD10 Code Diagnosis Note [id number] Kaylee green MD [facility] Internal Med [facility] [address], [address] [place] [address] 01/19/2022 00:00:00 01/19/2022 16:57:47 [id number] Kaylee green MD [facility] Internal Med [place] [address] [place] [address] [place] [address] 05/17/2022 00:00:00 05/17/2022 13:15:53 [id number] Kaylee green MD [facility] Internal Med [place] [address] [place] [address] [place] [address] 09/20/2022 00:00:00 09/20/2022 10:22:14 [id number] Kaylee green MD [facility] Internal Med [place] [address] [address] [place] [address] [place] [address] 04/18/2023 10:06:30 04/18/2023 10:28:43 Hyperlipidemia 80135434 E78.5 on atorvastat in Essential hypertension 70126441 I10 on lisinopril , HCTZ Prediabetes 577056564 R7 3.03 continue diet/exerc ise efforts Osteoarthr itis of knee 768849311 M17.9 s/p bilateral TKRis doing well Anemia 410861790 D64.9 on multivitam inrepeat labs Cobalamin deficiency 190 454379 E53.8 on MVI daily Folic acid deficiency 19 5664728 E53.8 on MVI Renewal of prescription 842401841 Z76.0 [id number] Kaylee green MD [facility] [address] [place] [address] [place] [address] 12/12/2023 08:16:22 12/12/2023 08:44:21 Hyperlipidemia 91927310 E78.5 Folic acid deficiency 19 0896521 E53.8 Anemia 295622919 D64.9 Prediabetes 702222581 R7 3.03 Essential hypertension 21338124 I10 [id number] Kaylee green MD [facility] [address] [place] [address] [place] [address] 04/16/2024 11:27:34 04/16/2024 11:55:54 Type 2 diabetes mellitus without complication 726703118 E11.9 Hepatitis C screening 41 6840828 Z11.59 Tachycardia 5649849 R00. 0 [id number] Kaylee green MD [facility] Primary Care [facility] [address] [facility] [address] [place] [address] 08/20/2024 10:09:59 08/20/2024 10:40:09 Diabetes mellitus 80701287 E11.9 Health Concerns Section Related Observation LastModified by Organization Detai ls LastModified Time None Recorded Concern Status LastModified by Organization Details LastModified Time None Recorded Advance Directives Directive None Recorded Payers Encounter Date Sequence Insurance Name Policy Number Policy Cao Covered Member ID Cao Member ID Guarantor Name 04/18/2023 1 [place] [id number] R Kristin Downs [id number] Kristin ame 12/12/2023 1 [place] [id number] R Kritsin Downs [id number] Kristin Downs 04/16/2024 1 [place] [id number] R Kristin Downs [id number] Kristin Downs 08/20/2024 1 [place] [id number] R Kristin Downs [id number] Kristin Downs Notes Date Note Type Note Provider Name and Address Organization Details Recorded Time 04/18/2023 text/html Kristin presents today for follow-up. She reports she has been overall feeling well and denies any new complaints. She continues to do well after having both her knees replaced. Her blood pressures been well controlled at home on her current dose of medications. She continues to take her multivitamin. She did not get her labs done I ordered last time. AUGIE Harris [address], [facility] [address], [place], [address], [facility] 04/18/2023 11:01:51 12/12/2023 text/html Kristin presents today to establish care. She states that she is here for an annual check up and refill on medications. Denies any other illness, injuries, or issues of concern. 04/18/2023jose alfredo presents today for follow-up. She reports she has been overall feeling well and denies any new complaints. She continues to do well after having both her knees replaced. Her blood pressures been well controlled at home on her current dose of medications. She continues to take her multivitamin. She did not get her labs done I ordered last time. Aubrie Torre APRN [address] [facility], [address], [place], [address], [employer] 12/12/2023 08:43:00 04/16/2024 text/html Kristin presents today for 3 month follow up. According to her previous labs, her A1C is 8.8. She is currently on Metformin 500mg twice per day. Adding medication was di [id number]|2024-12-29 07:08:00|2024-12-29 07:08:00|P.PNAN_ITS|KATHY|Health Information Management|[id number]|"Anes - Initial Pre Proc Eval Procedure: Operation Date: 12/29/24 08:00 Proposed Procedures p Colonoscopy - Edgar A. Brady-Alvarez, MD Date/Time: 12/29/24 07:08 Surgeon: Edgar Tapia MD Pre Op Diagnosis: Personal hx of colon polyps Patient Data Age: 54 Gender: F Height: 1.6 m Weight: 95.2 kg Last Vital Signs Temp 36.6 C 12/29/24 06:41 Pulse 77 12/29/24 06:41 Resp 18 12/29/24 06:41 BP 105/56 L 12/29/24 06:41 Pulse Ox 99 12/29/24 06:41 O2 Del Method Room Air 12/29/24 06:41 Allergies Allergy/AdvReac Type Severity Reaction Status Date / Time No Known Allergies Allergy Mild Verified 12/18/24 09:02 Home Medications Medication Instructions Recorded Confirmed Type atorvastatin 10 mg tablet (Lipitor) 10 mg PO DAILY 03/02/20 12/29/24 History hydrochlorothiazide 25 mg tablet 25 mg PO DAILY 03/02/20 12/29/24 History lisinopril 40 mg tablet 40 mg PO DAILY 03/02/20 12/29/24 History cholecalciferol (vitamin D3) 50 50 mcg PO DAILY 08/24/21 12/29/24 History mcg (2,000 unit) tablet (Vitamin D3) krill 1 cap PO DAILY 08/24/21 12/29/24 History ohr-zs-6-lit-ubq-zqhzkxsnumkop 300 mg-90 mg-24 mg-50 mg capsule (krill oil) amlodipine 5 mg tablet 5 mg PO DAILY 12/18/24 12/29/24 History carvedilol 6.25 mg tablet 6.25 mg PO Q12H 12/18/24 12/29/24 History metformin 500 mg tablet 1,000 mg PO BID 12/18/24 12/29/24 History tirzepatide 7.5 mg/0.5 mL 7.5 mg subcut WEEKLY 12/18/24 12/29/24 History subcutaneous pen injector (Mounjaro) Laboratory Tests 12/29/24 06:44 POC Capillary Glucose 86 mg/dl (65-105) Patient hx anesthesia problems: none Family hx anesthesia problems: none Results Review: All pre-operative results and documents have been reviewed as part of the pre- operative evaluation. [facility] Past Medical History Medical History Colon cancer screening Morbid obesity Missed x1 High cholesterol Hypertension Vaginal delivery x1 Surgical History Surgical History History of total left knee replacement History of total right knee replacement History of colonoscopy with polypectomy 09/03/21 Status post right knee replacement 02/10/22 History of dilation and curettage 1999 Family History Family History Mother Hypertension Asthma Patient's mother is in good health Sibling Hypertension Patient's sister is in good health Patient's brother is in good health Father Patient's father is Other Family history of attention deficit hyperactivity disorder (ADHD) Social History Social History Smoking status: Never smoker Second hand tobacco smoke exposure: No Alcohol intake: current Alcohol use details: 1-2X yearly Substance use: never Substance use type: does not use Lack of Transportation: No Lack of Food: Never True Current Housing: I Have Housing Concerned About Future Housing: No Difficulty Paying Gas/Electric Bills: No Difficulty Paying for Meds: No Currently Unemployed: No Difficulty w/ Childcare or Family Care: No Living arrangements: with family Occupation/Education: occupation Gender identity (if verbalized by the patient): Female Sexual Orientation (if Verbalized by the Patient): Straight or Heterosexual Spiritual care concerns: No Anes - Eval Final PreProcedure Day of Procedure 12/29/24 07:08 Patient weight: obese Heart: regular rate and rhythm Lungs: clear to auscultation Airway: Mallampati scale class II Neurological: alert and oriented Last oral intake: >/= 8 hours ASA classification: III Emergent: no Anesthetic plan: proceed Anesthesia type and monitoring: general GIVS and standard monitoring Results Review: All pre-operative results and documents have been reviewed as part of the pre- operative evaluation. Informed Consent: The patient's anesthetic plan and its attendant risks and benefits were discussed with the patient/family/POA. Questions were solicited and answers provided to the satisfaction of the patient/family/POA. "
--- OUTSIDE RECORDS SUMMARY | 2024-12-29 00:58 | XMS_ITS | Clinical Summary ---
Author Organization [facility] Address [facility] [place] [address] Care Team Providers Care Wrist Hemmer Name Role Phone Unavailable Primary Care Provider Unavailabl e Social History Tobacco Use Types Packs/Day Years Used Date Smoking Tobacco: Never Assessed Comments Unknown Sex and Gender Information Value Date Recorded Sex Assigned at Not on file Legal Sex Female 6:05 PM CDT Gender Identity Not on file Sexual Orientation Not on file Plan of Treatment Health Maintenance Due Date Last Done Comments Cervical Cancer Screening Pa p Smear (Age 30 to 64) Every 3 Years 1970 Colorectal Cancer Screening Colonoscopy (10 Years) 1970 Annual Physical 1973 Hepatitis C 1988 DTaP, Tdap and Td Vaccines ( 1 - Tdap) 1989 Hepatitis B Vaccines (1 of 3 - 19+ 3-dose series) 1989 Cervical Cancer Screening Pa p with HPV Testing (Age 30 to 64) Every 5 Years 2000 Cervical Cancer Screening with HPV 2000 Mammogram Screening 2010 Pneumococcal Vaccine: 50+ Ye ars (1 of 1 - PCV) 2020 Zoster Vaccines (1 of 2) 2020 COVID-19 Vaccine ( - 2023-2 5 season) 2024 Meningococcal B Vaccine Aged Out No l onger eligible based on patient's age to complete this topic Meningococcal Vaccine Aged Out No ines ella eligible based on patient's age to complete this topic RSV Immunizations Under 20 Months Aged Out No longer eligible based on patient's age to complete this topic
--- OUTSIDE RECORDS SUMMARY | 2024-12-29 00:58 | XMS_ITS | Encounter Summary ---
Author Organization [facility] Healthcare Address [address] [place] [address] Care Team Providers Care Technician Chemical Cleaning Name Role Phone Stanley Courtney MD Unavailable [phone] Monse Marie NP Primary Care Provider [phone] Encounter Details Date Type Department Care Team (Latest Contact Info) Description 12/12/2024 Results Follow-Up [facility] Medical Group Primary Care at [address] [address] Monse Marie NP [address] [place] [address] [address] [place] [address] Comprehensive metabolic panel, Lipid panel, Hemoglobin A1c, Albumin Creatinine Ratio, Urine Social History Tobacco Use Types Packs/Day Years Used Date Smoking Tobacco: Never Passive Smoke Exposure: Never Smokeless Tobacco: Never Alcohol Use Standard Drinks/Week Comments Never 0 [...] on file 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 She is fine with whoever CARA Shea wants to refer her to. She stated she does not take any OTC pain meds. Does message need to be routed? Yes-Action Needed * Result Encounter Note - Myah Faust MA - 12/12/2024 5:11 PM CDT Attempted to call pt x 3 and spoke with just said to keep calling her. I just sent her a [employer] message explaining her labs to her. documented in this encounter Plan of Treatment Scheduled Orders Name Type Priority Associated Diagnoses Orde r Schedule Renal function panel Lab Routine Decreased GFR Expected: 12/15/2024, Expires: 12/12/2025 documented as of this encounter Visit Diagnoses Diagnosis Decreased GFR- Primary documented in this encounter Discontinued Medications Medication Sig Discontinue Reason Start Date End Da te hydroCHLOROthiazide (HYDRODIURIL) 25 mg tabletIndications:Essenti al hypertension Take 1 tablet (25 mg total) by mouth daily Alternate therapy 11/20/2024 12/12/2024 documented as of this encounter Care Teams Technician Chemical Cleaning Relationship Specialty Start Date End Date Monse Marie NP [address] [facility] [address] [place] [address] PCP - General Internal Medicine 11/20/24 Stanley Courtney MD Surgeon Orthopedic Surgery 02/10/22 documented as of this encounter
--- OUTSIDE RECORDS SUMMARY | 2024-12-29 00:58 | XMS_ITS | Clinical Summary ---
[facility] Organization [facility] Address [address] [place] [address] Care Team Providers Care Nuclear Equipment Research Engineer Name Role Phone Stanley Courtney MD Unavailable [phone] Monse Marie NP Primary Care Provider [phone] Allergies No known active allergies Medications multivitamin [...] (05/17/2022): Added automatically from request for surgery [id number] Primary osteoarthritis of right knee 01/12/2022 11/20/2024 Overview (01/12/2022): Added automatically from request for surgery [id number] Primary osteoarthritis of both knees 09/26/2019 11/20/2024 Encounters Date Type Department Care Team Description 12/12/2024 Results Follow-Up [facility] Primary Care at [address] [phone] Monse Marie NP Comprehensive metabolic panel, Lipid panel, Hemoglobin A1c, Albumin Creatinine Ratio, Urine 11/20/2024 10:30 AM CDT Office Visit [facility] Primary Care at [address] [address] Monse Marie NP BMI 38.0-38.9,adult (Primary Dx); Essential hypertension; Mixed hyperlipidemia; Folic acid deficiency; Anemia, unspecified type; Type 2 diabetes mellitus with hyperlipidemia (HCC); B12 deficiency; Severe obesity (HCC) from Last 3 Months Immunizations Immunization Administration Dates Next Due Influenza, Quadrivalent, Spl it, Preservative Free, Intramuscular 05/17/2022 Surgical History Surgery Date Site/Laterality Comments DILATION AND CURETTAGE OF UTERUS KNEE ARTHROPLASTY 02/10/2022 - 03/12/2022 Bilateral 03/03 right 04/03 left Medical History Medical History Date Comments Hypertension Hypercholesteremia Motion sickness Diabetes mellitus (HCC) Vitamin D deficiency Cobalamin deficiency 04/16/2023 Family History Medical History Relation Name Comments No Known Problems Father Hypertension Mother Hypertension Other Relation Name Status Comments Father Mother Alive Other Social History Tobacco Use Types Packs/Day Years [...] on file 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 Gender Identity Not on file Sexual Orientation Not on file Obstetrics History Last Filed Vital Signs Vital Sign Reading [...] 11/20/2024 10:27 AM CDT Plan of Treatment Health Maintenance Due Date Last Done Comments Breast Cancer Screening-Mammogram 1970 Cervical Cancer Screening 1970 Colon Cancer Screening-Colonoscopy 1970 Dilated Eye Exam 1970 Foot Exam 1970 DTaP/Tdap/Td Vaccine (1 - Tdap) 1981 Pneumococcal vaccine <65 (1 of 2 - PCV) 1989 Zoster Vaccine (1 of 2) 2020 Influenza Vaccine (Season Ended) 2025 05/17/2022 Hemoglobin A1C 06/10/2025 12/09/2024, 04/14, 02/07/2022, Additional history exists Covid-19 Vaccine ( season) 2025 08/02/2021, 11/21/2020, 10/29/2020 Postponed from 04/13/2024 (Patient declined, but will receive in the future) Depression Screening 11/20/2025 11/20/2024 Regular Well Visit/Exam 18-64 11/20/2025 11/20/2024 Albumin Creatinine Ratio, Urine 12/09/2025 12/09/2024 Lipid Panel 12/09/2025 12/09/2024 eGFR 12/09/2025 12/09/2024, 04/14, 02/07/2022, Additional history exists Hepatitis B Screening Discontinued Hepatitis C Screening Discontinued Medical Devices Implanted Type Area Finishing Technician Device Identifier Shelf Expiration Date Model / Serial / Lot [employer] Cement Bone Simplex Gentamicin High Viscosity 40gm 6195-1-001 - [id number] Implanted:Qty: 1 on 02/10/2022 by Stanley Courtney MD at [facility] Right: Knee [employer] 07/12/2023 6195-1-001 / / [id number] [employer] Cement Bone Simplex Gentamicin High Viscosity 40gm 6195-1-001 - [id number] Implanted:Qty: 1 on 02/10/2022 by Stanley Courtney MD at [facility] Right: Knee [employer] 07/12/2023 6195-1-001 / / [id number] [employer] Attune S+ Cement Fix Bearing Knee 4 Baseplate Tibial [id number] - [id number] Implanted:Qty: 1 on 02/10/2022 by Stanley Courtney MD at [facility] Right: Knee [employer] 12/11/2031 [id number] / / [id number] [employer] Attune Cemented Posterior Stabilize Knee Right 5 Narrow Component [id number] - [id number] Implanted:Qty: 1 on 02/10/2022 by Stanley Courtney MD at [facility] Right: Knee [employer] 11/11/2031 [id number] / / [id number] [employer] Attune 10mm Posterior Stabilize Fix Bearing Knee 4 Insert Tibial [id number] - [id number] Implanted:Qty: 1 on 02/10/2022 by Stanley Courtney MD at [facility] Right: Knee [employer] 08/12/2023 [id number] / / [id number] [employer] Cement Bone Simplex Gentamicin High Viscosity 40gm 6195-1-001 - [id number] Implanted:Qty: 2 on 06/02/2022 by Stanley Courtney MD at [facility] Left: Knee [employer] 11/11/2023 6195-1-001 / / [id number] [employer] Attune Cemented Posterior Stabilize Knee Left 5 Narrow Component [id number] - [id number] Implanted:Qty: 1 on 06/02/2022 by Stanley Courtney MD at [facility] Left: Knee [employer] [id number] 03/12/2029 [id number] / / [id number] [employer] Attune 10mm Posterior Stabilize Fix Bearing Knee 5 Insert Tibial [id number] - [id number] Implanted:Qty: 1 on 06/02/2022 by Stanley Courtney MD at [facility] Left: Knee [employer] 12/10/2026 [id number] / / [id number] [employer] Attune S+ Cement Fix Bearing Knee 4 Baseplate Tibial [id number] - [id number] Implanted:Qty: 1 on 06/02/2022 by Stanley Courtney MD at [facility] [employer] [id number] 04/12/2032 [id number] / / [id number] Procedures Procedure Name Priority Date/Time Associated Diagnosis [...] FASTING: YES us Monse Marie NP LAB URINE ORDERABLES Final Re sult [facility] [address] [address] * Hemoglobin A1c (12/09/2024 7:17 AM CDT) Hgb A1C 5.6 <5.7 % of total Hgb [facility] Comment: For the purpose of screening for the presence of diabetes: <5.7% Consistent with the absence of diabetes 5.7-6.4% Consistent with increased risk for diabetes (prediabetes) > or =6.5% Consistent with diabetes This assay result is consistent with a decreased risk of diabetes. Currently, no consensus exists regarding use of hemoglobin A1c for diagnosis of diabetes in children. According to [place] Diabetes Association (ADA) guidelines, hemoglobin A1c <7.0% represents optimal control in non- diabetic patients. Different metrics may apply to specific patient populations. Standards of Medical Care in Diabetes(ADA). Blood 12/09/2024 7:17 AM CDT 12/09/2024 7:17 AM CDT Narrative [facility] - 12/10/2024 3:59 AM CDT FASTING:YES FASTING: YES us Monse Marie NP LAB BLOOD ORDERABLES Final Re sult [facility] [address] [place] [address] * (ABNORMAL) Lipid panel (12/09/2024 7:17 AM CDT) Pathologist [facility] Cholesterol 138 <200 mg/dL [facility] HDL 54 > OR = 50 mg/dL [facility] Triglycerides 156(H) <150 mg/dL [facility] LDL 61 mg/dL (calc) [facility] Comment: Reference range: <100 Desirable range <100 mg/dL for primary prevention; <70 mg/dL for patients with CHD or diabetic patients with > or = 2 CHD risk factors. LDL-C is now calculated using the Pop-Isaac calculation, which is a validated novel method providing better accuracy than the Friedewald equation in the estimation of LDL-C. Pop SS et al. MAHENDRA. 2013;310(19): 6548-1530 (http://education.Chu Shu.AcceloWeb/faq/SWF787) Chol/HDL ratio 2.6 <5.0 (calc) [facility] Non-HDL, (LDL+VLDL) 84 <130 mg/dL (calc) [facility] Comment: For patients with diabetes plus 1 major ASCVD risk factor, treating to a non-HDL-C goal of <100 mg/dL (LDL-C of <70 mg/dL) is considered a therapeutic option. Blood 12/09/2024 7:17 AM CDT 12/09/2024 7:17 AM CDT Narrative [facility] - 12/10/2024 3:59 AM CDT FASTING:YES FASTING: YES Monse Marie NP LAB BLOOD ORDERABLES Final Re sult [facility] [address] [place] [address] * (ABNORMAL) Comprehensive metabolic panel (12/09/2024 7:17 AM CDT) Glucose 98 65 - 99 mg/dL [facility] Comment: Fasting reference interval BUN 48(H) 7 - 25 mg/dL [facility] Creatinine 2.12(H) 0.50 - 1.03 mg/dL [facility] eGFR 27(L) > OR = 60 mL/min/1.7 3m2 [facility] BUN/creat ratio 23(H) 6 - 22 (calc) [facility] Sodium 140 135 - 146 mmol/L [facility] Potassium, pl 4.2 3.5 - 5.3 mmol/L [facility] Chloride 105 98 - 110 mmol/L [facility] CO2 25 20 - 32 mmol/L [facility] Calcium 9.4 8.6 - 10.4 mg/dL [facility] Protein, sr 6.7 6.1 - 8.1 g/dL [facility] Albumin 4.3 3.6 - 5.1 g/dL [facility] GLOBULIN 2.4 1.9 - 3.7 g/dL (calc) [facility] Alb/glob ratio 1.8 1.0 - 2.5 (calc) [facility] Bilirubin, total 0.4 0.2 - 1.2 mg/dL [facility] Alk phos 55 37 - 153 U/L [facility] AST 18 10 - 35 U/L [facility] ALT (SGPT) 23 6 - 29 U/L [facility] Blood 12/09/2024 7:17 AM CDT 12/09/2024 7:17 AM CDT Narrative [facility] - 12/10/2024 3:59 AM CDT FASTING:YES FASTING: YES Monse Marie NP LAB BLOOD ORDERABLES Final Re sult [facility] [address] [place] [address] from Last 3 Months Insurance [employer] ACCESS Advance Directives For more information, please contact: [phone] * Full Code (Latest Code Status on File) Date Activated Date Inactivated Comments 06/02/2022 11:17 AM 06/02/2022 7:04 PM * Full Code Date Activated Date Inactivated Comments 02/10/2022 11:03 AM 02/10/2022 6:38 PM Care Teams Nuclear Equipment Research Engineer Relationship Specialty Start Date End Date Monse Marie NP [address] [facility] [address] [place] [address] PCP - General Internal Medicine 11/20/24 Stanley Courtney MD Surgeon Orthopedic Surgery 02/10/22
--- OUTSIDE RECORDS SUMMARY | 2024-12-29 00:58 | XMS_ITS | Encounter Summary ---
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 Never 11/20/2024 10:29 AM CDT Myah Faust MA Q2: How many drinks containing alcohol do you have on a typical day when you are drinking? Patient does not drink 11/20/2024 10:29 AM CDT Myah Faust MA Q3: How often do you have six or more drinks on one occasion? Never 11/20/2024 10:29 AM CDT Myah Faust MA documented as of this encounter Plan of Treatment Not on file documented as of this encounter Procedures Procedure Name Priority Date/Time Associated Diagnosis Comments XR KNEE BILATERAL 3 VIEWS Schedule Routine, Read Routine (OP Routine) 05/29/2023 9:14 AM CDT Aftercare following left knee joint replacement surgery documented in this encounter Results * XR Knee Bilateral 3 Views (05/29/2023 9:14 AM CDT) Anatomical Region Laterality Modality Lower Extremities, Knee Bilateral Digital Radiography Narrative 05/29/2023 10:10 AM CDT Bilateral total knee replacements in appropriate position with no interval change. Stanley Courtney MD IMG XR PROCEDURES Final Result documented in this encounter Visit Diagnoses Not on filedocumented in this encounter Care Teams Exhibit Preparator Relationship Specialty Start Date End Date Brenda Hernandez NP PCP - General 01/06/22 11/19/24 Stanley Courtney MD Surgeon Orthopedic Surgery 02/10/22 documented as of this encounter
[2024-12-29 06:41] VITALS: BP 105/56; PULSE 77; RESP 18; TEMP 36.6; O2SAT 99
[2024-12-29] MEDS: LACTATED RINGERS 1,000 ML 150 ML IV CONT (06:43)
[2024-12-29 06:51] LABS: Glucose Point of Care 86 mg/dl (65-105)
--- NOTE | 2024-12-29 07:08 | WPDANESEPPF ---
Anes - Initial Pre Proc Eval Procedure: Operation Date: 12/29/24 08:00 Proposed Procedures p Colonoscopy - Edgar Tapia MD Date/Time: 12/29/24 07:08 Surgeon: Edgar Tapia MD Pre Op Diagnosis: Personal hx of colon polyps Patient Data Age: 54 Gender: F Height: 1.6 m Weight: 95.2 kg Last Vital Signs Temp 36.6 C 12/29/24 06:41 Pulse 77 12/29/24 06:41 Resp 18 12/29/24 06:41 BP 105/56 L 12/29/24 06:41 Pulse Ox 99 12/29/24 06:41 O2 Del Method Room Air 12/29/24 06:41 Allergies Allergy/AdvReac Type Severity Reaction Status Date / Time No Known Allergies Allergy Mild Verified 12/18/24 09:02 Home Medications Medication Instructions Recorded Confirmed Type atorvastatin 10 mg tablet (Lipitor) 10 mg PO DAILY 03/02/20 12/29/24 History hydrochlorothiazide 25 mg tablet 25 mg PO DAILY 03/02/20 12/29/24 History lisinopril 40 mg tablet 40 mg PO DAILY 03/02/20 12/29/24 History cholecalciferol (vitamin D3) 50 50 mcg PO DAILY 08/24/21 12/29/24 History mcg (2,000 unit) tablet (Vitamin D3) krill 1 cap PO DAILY 08/24/21 12/29/24 History [id number]-mk-0-[id number]-[id number]-[id number] 300 mg-90 mg-24 mg-50 mg capsule (krill oil) amlodipine 5 mg tablet 5 mg PO DAILY 12/18/24 12/29/24 History carvedilol 6.25 mg tablet 6.25 mg PO Q12H 12/18/24 12/29/24 History metformin 500 mg tablet 1,000 mg PO BID 12/18/24 12/29/24 History tirzepatide 7.5 mg/0.5 mL 7.5 mg subcut WEEKLY 12/18/24 12/29/24 History subcutaneous pen injector (Mounjaro) Laboratory Tests 12/29/24 06:44 POC Capillary Glucose 86 mg/dl (65-105) Patient hx anesthesia problems: none Family hx anesthesia problems: none Results Review: All pre-operative results and documents have been reviewed as part of the pre-operative evaluation. [facility] Past Medical History Medical History Colon cancer screening Morbid obesity Missed x1 High cholesterol Hypertension Vaginal delivery x1 Surgical History Surgical History History of total left knee replacement History of total right knee replacement History of colonoscopy with polypectomy 09/03/21 Status post right knee replacement 02/10/22 History of dilation and curettage 1999 Family History Family History Mother Hypertension Asthma Patient's mother is in good health Sibling Hypertension Patient's sister is in good health Patient's brother is in good health Father Patient's father is Other Family history of attention deficit hyperactivity disorder (ADHD) Social History Social History Smoking status: Never smoker Second hand tobacco smoke exposure: No Alcohol intake: current Alcohol use details: 1-2X yearly Substance use: never Substance use type: does not use Lack of Transportation: No Lack of Food: Never True Current Housing: I Have Housing Concerned About Future Housing: No Difficulty Paying Gas/Electric Bills: No Difficulty Paying for Meds: No Currently Unemployed: No Difficulty w/ Childcare or Family Care: No Living arrangements: with family Occupation/Education: occupation Gender identity (if verbalized by the patient): Female Sexual Orientation (if Verbalized by the Patient): Straight or Heterosexual Spiritual care concerns: No Anes - Eval Final PreProcedure Day of Procedure 12/29/24 07:08 Patient weight: obese Heart: regular rate and rhythm Lungs: clear to auscultation Airway: Mallampati scale class II Neurological: alert and oriented Last oral intake: >/= 8 hours ASA classification: III Emergent: no Anesthetic plan: proceed Anesthesia type and monitoring: general GIVS and standard monitoring Results Review: All pre-operative results and documents have been reviewed as part of the pre-operative evaluation. Informed Consent: The patient's anesthetic plan and its attendant risks and benefits were discussed with the patient/family/POA. Questions were solicited and answers provided to the satisfaction of the patient/family/POA.
--- NOTE | 2024-12-29 07:46 | PM.HPGS ---
History of Present Illness History of Present Illness Consent: Risks, benefits, and alternatives have been discussed and questions answered. Patient agrees to proceed with procedure. Chief complaint: Personal hx of colon polyps Narrative: Kristin Downs is a 54 year old female with colon polyp in 2021 Review of Systems Review of Systems: All systems reviewed & are unremarkable except as noted in HPI and below PMFSH Past Medical History Medical History (Updated 12/29/24 @ 07:47 by Edgar Tapia MD) Adenomatous colon polyp Colon cancer screening Morbid obesity Missed x1 High cholesterol Hypertension Vaginal delivery x1 Surgical History Surgical History History of total left knee replacement History of total right knee replacement History of colonoscopy with polypectomy 09/03/21 Status post right knee replacement 02/10/22 History of dilation and curettage 1999 Family History Family History Mother Hypertension Asthma Patient's mother is in good health Sibling Hypertension Patient's sister is in good health Patient's brother is in good health Father Patient's father is Other Family history of attention deficit hyperactivity disorder (ADHD) Social History Social History Smoking status: Never smoker Second hand tobacco smoke exposure: No Alcohol intake: current Alcohol use details: 1-2X yearly Substance use: never Substance use type: does not use Lack of Transportation: No Lack of Food: Never True Current Housing: I Have Housing Concerned About Future Housing: No Difficulty Paying Gas/Electric Bills: No Difficulty Paying for Meds: No Currently Unemployed: No Difficulty w/ Childcare or Family Care: No Living arrangements: with family Occupation/Education: occupation Gender identity (if verbalized by the patient): Female Sexual Orientation (if Verbalized by the Patient): Straight or Heterosexual Spiritual care concerns: No Meds Home Medications and Allergies Home Medications Medication Instructions Recorded Confirmed Type atorvastatin 10 mg tablet (Lipitor) 10 mg PO DAILY 03/02/20 12/29/24 History hydrochlorothiazide 25 mg tablet 25 mg PO DAILY 03/02/20 12/29/24 History lisinopril 40 mg tablet 40 mg PO DAILY 03/02/20 12/29/24 History cholecalciferol (vitamin D3) 50 50 mcg PO DAILY 08/24/21 12/29/24 History mcg (2,000 unit) tablet (Vitamin D3) krill 1 cap PO DAILY 08/24/21 12/29/24 History ewg-[id number]-[id number]-[id number] 300 mg-90 mg-24 mg-50 mg capsule (krill oil) amlodipine 5 mg tablet 5 mg PO DAILY 12/18/24 12/29/24 History carvedilol 6.25 mg tablet 6.25 mg PO Q12H 12/18/24 12/29/24 History metformin 500 mg tablet 1,000 mg PO BID 12/18/24 12/29/24 History tirzepatide 7.5 mg/0.5 mL 7.5 mg subcut WEEKLY 12/18/24 12/29/24 History subcutaneous pen injector (Mounjennyro) Allergies Allergy/AdvReac Type Severity Reaction Status Date / Time No Known Allergies Allergy Mild Verified 12/18/24 09:02 Vital Signs Vital Signs - 24 hr 12/29/24 06:41 Temperature 97.9 F Pulse Rate 77 Respiratory Rate 18 Blood Pressure 105/56 L Pulse Oximetry 99 Oxygen Delivery Room Air Exam Const: General: comfortable and no acute distress HENMT: Face/Nose/Sinus: Normal nares present Eyes: General: appearance normal, both eyes and all related structures Neck: Neck: no JVD Resp: Auscultation: clear to auscultation bilaterally Cardio: Rate: regular rate Rhythm: regular rhythm GI: Inspection: non-distended GI Palp: Yes Soft to palpation Skin: General skin exam: normal color Neuro: General: gait normal Speech: normal speech Extrem: General: normal to inspection Psych: Mental Status: mental status grossly normal Assessment and Plan Assessment and plan (1) Adenomatous colon polyp: Code(s): D12.6 - Benign neoplasm of colon, unspecified Status: Acute Assessment and Plan: colonoscopy
[2024-12-29 08:06] VITALS: BP 81/42; PULSE 77; RESP 22; O2SAT 97
[2024-12-29 08:16] VITALS: BP 88/45; PULSE 78; RESP 19; O2SAT 97
[2024-12-29 08:26] VITALS: BP 96/51; PULSE 78; RESP 19; O2SAT 98
== END 2024-12-29 08:38 | disposition home or self-care (01) ==
PROVIDERS: PCP Nurse Practitioner; Referring Provider Internal Medicine Gastroenterology; Visit Provider Internal Medicine Gastroenterology
PROC: 0DJD8ZZ Inspection of Lower Intestinal Tract, Via Natural or Artificial Opening Endoscopic (ICD-10-PCS; CPT 45378; principal; 2024-12-29 08:00)
DX: Z12.11 Encounter for screening for malignant neoplasm of colon (principal); D12.2 Benign neoplasm of ascending colon; D12.3 Benign neoplasm of transverse colon; K63.5 Polyp of colon; K57.30 Diverticulosis of large intestine without perforation or abscess without bleeding; K64.8 Other hemorrhoids; Z79.84 Long term (current) use of oral hypoglycemic drugs; Z79.85 Long-term (current) use of injectable non-insulin antidiabetic drugs; E66.9 Obesity, unspecified; Z68.37 Body mass index [BMI] 37.0-37.9, adult
CPT/HCPCS: 45385; 82948; 88305; J2003; J2704; J7120